=== PATIENT | female | born 1970 | race Caucasian/White ===

== ENCOUNTER 2019-01-18 18:50 | Emergency (ER) | payer BC ==
[~2019-01-18] VITALS: Ht 167.6 cm; Wt 57.7 kg
[2019-01-18 19:03] VITALS: TEMP 98.5
[2019-01-18 19:32] LABS: COLLECTION METHOD CLEAN CATCH
[2019-01-18] MEDS ORDERED: VIVLODEX5 MG PO (19:35)
[2019-01-18] MEDS ORDERED: ULTRAM 50MG TAB50 MG PO (19:35)
[2019-01-18] MEDS ORDERED: LOESTRIN 1/20 21DAY PO (19:35)
[2019-01-18 19:43] LABS: GRAN # 4.5 (1.4-6.5); GRAN % 79.1 % (42.2-75.2); HEMATOCRIT 43.4 % (37.0-47.0); HEMOGLOBIN 14.8 g/dl (12.5-16.0); LYMPH # 0.8 (1.2-3.4); LYMPH % 14.3 % (20.0-51.0); MEAN CELL VOLUME 94 fl (80.0-100.0); MEAN CORPUSCULAR HEMOGLOBIN 32 pg (27.0-31.0); MEAN CORPUSCULAR HGB CONC 34 g/dl (33.0-37.0); MEAN PLATELET VOLUME 10.9 fl (7.4-10.4); MONO # 0.4 (0.1-0.6); MONO % 6.2 % (1.7-9.3); PLATELET COUNT 206 K/mm3 (130-400); RED BLOOD COUNT 4.61 M/mm3 (4.10-5.30); REDCELL DISTRIBUTION WIDTH-CV 12.3 % (11.5-14.5)
[2019-01-18 19:51] LABS: MUCOUS Present /lpf; PH 6 (5-8); SQUAMOUS EPITHELIAL 0-2 /hpf; URINE APPEARANCE Clear; URINE BACTERIA None Seen /hpf; URINE BILIRUBIN Negative (NEGATIVE); URINE BLOOD Negative (NEGATIVE); URINE COLOR Yellow; URINE GLUCOSE Negative (NEGATIVE); URINE KETONE Negative (NEGATIVE); URINE LEUKOCYTE ESTERASE Negative (NEGATIVE); URINE NITRATE Negative (NEGATIVE); URINE PROTEIN(semi-quant) Negative (NEGATIVE); URINE RBC 0-2 /hpf; URINE UROBILINOGEN Negative (NEGATIVE)
[2019-01-18 19:53] LABS: ALBUMIN 4.2 gm/dL (3.5-5.0); BILIRUBIN,TOTAL 0.3 mg/dL (0.0-1.0); CALCIUM 9.9 mg/dL (8.4-10.2); CREATININE, serum 0.63 (0.52-1.25); POTASSIUM 3.7 mmol/L (3.4-5.0); TOTAL PROTEIN 7.4 gm/dL (6.4-8.2)
[2019-01-18] MEDS ORDERED: ZOFRAN ODT4 MG PO (21:30)
[2019-01-18 22:15] VITALS: BP 119/82; PULSE 96
== END 2019-01-18 22:16 | disposition home or self-care (01) ==
LOC: COL.ER 18:50
PROVIDERS: Emergency Medicine
DX: E86.0 Dehydration (principal); R11.10 Vomiting, unspecified; M19.90 Unspecified osteoarthritis, unspecified site; Z98.890 Other specified postprocedural states
CPT/HCPCS: J2405; J2765; J3010; J7030; Q9967